=== PATIENT | male | born 1950 | race Caucasian/White ===

== ENCOUNTER 2022-03-20 11:58 | Emergency (ER) | payer MEDICARE ==
--- NOTE | 2022-03-20 20:31 | XRay Report ---
CHEST 1 VIEW 03/20/2022 8:02 PM INDICATION / CLINICAL INFORMATION: sob, palpitation. COMPARISON: None available. FINDINGS: SUPPORT DEVICES: None. HEART / MEDIASTINUM: No significant abnormality. LUNGS / PLEURA: No significant pulmonary or pleural abnormality. Small calcified granuloma in the rig ht midlung. No pneumothorax. ADDITIONAL FINDINGS: No significant additional findings. IMPRESSION: 1. No acute findings. Signer Name: Rebeka See MD Signed: 03/20/2022 8:27 PM Workstation Name: [id number]
[2022-03-20 20:42] LABS: Alanine Aminotransferase 15 units/L (7-56); BUN/Creatinine Ratio 21; Blood Urea Nitrogen 17 mg/dL (9-20); Calcium 8.7 mg/dL (8.4-10.2); Hemolysis Index 3
[2022-03-20 20:43] LABS: Basophils % (Auto) 0.7 % (0.0-1.8); Eosinophils # (Auto) 0.2 K/mm3 (0.0-0.4); Eosinophils % (Auto) 3.2 % (0.0-4.3); Hematocrit 37.9 % (35.5-45.6); Hemoglobin 13.6 gm/dl (11.8-15.2); Lymphocytes # (Auto) 1.4 K/mm3 (1.2-5.4); Lymphocytes % (Auto) 29.7 % (13.4-35.0); Mean Corpuscular HGB Conc 36 % (32-34); Mean Corpuscular Volume 92 fl (84-94); Monocytes # (Auto) 0.6 K/mm3 (0.0-0.8); Monocytes % (Auto) 13.2 % (0.0-7.3); Platelet Count 158 K/mm3 (140-440); Red Cell Distribution Width 13.8 % (13.2-15.2)
[2022-03-20 21:50] LABS: WBC,Urine < 1.0 /HPF (0.0-6.0)
--- NOTE | 2022-03-20 22:09 | Emergency Department Report ---
ED General Adult HPI - General Chief complaint: Medical Clearance Stated complaint: HEART PAPITATION Time Seen by Provider: 03/20/22 19:55 Source: patient Mode of arrival: Ambulatory Limitations: No Limitations - History of Present Illness Initial comments: 71-year-old pleasant male male presents to the emergency department with palpitations. Patient reports he has been experiencing heart palpitations for a while, described as sometimes skips beats, states he has previously seen a upholstery auto trimmer in [place] and was told "something with the valve or anxiety". Patient reports symptoms are sporadic,, sometimes he feels it in his head, affecting his sleep. States he has been using some clonazepam and aspirin but symptoms are not resolving. Denies history of hypertension, [place], heart failure, CAD. He denies shortness of breath, swelling orthopnea, no nausea vomiting abdominal pain, he denies any drug or caffeine use. -: month(s) Location: chest Radiation: non-radiation Consistency: intermittent Improves with: none Worsens with: none Associated Symptoms: headaches, other (Dizziness). denies: chest pain, diaphoresis, nausea/vomiting, shortness of breath, syncope, weakness - Related Data Allergies Allergy/AdvReac Type Severity Reaction Status Date / Time No Known Allergies Allergy Unverified 03/20/22 12:23 ED Review of Systems ROS: Stated complaint: HEART PAPITATION Other details as noted in HPI Constitutional: denies: chills Eyes: denies: eye pain ENT: as per HPI Respiratory: denies: cough, orthopnea, shortness of breath, SOB with exertion Cardiovascular: palpitations. denies: chest pain, dyspnea on exertion, orthopnea, edema, syncope, paroxysmal nocturnal dyspnea Endocrine: denies: excessive sweating, flushing, intolerance to cold, intolerance to heat Gastrointestinal: denies: abdominal pain, nausea, vomiting Neurological: denies: headache Psychiatric: denies: anxiety ED Past Medical Hx - Past Medical History Previous Medical History?: Yes Additional medical history: Heart racing, Head injury - Surgical History Past Surgical History?: Yes Additional Surgical History: Head surgery after head injury ED Physical Exam - General Limitations: No Limitations General appearance: alert, in no apparent distress - Head Head exam: Present: atraumatic, normocephalic - Eye Eye exam: Present: normal appearance, PERRL Pupils: Present: normal accommodation - ENT ENT exam: Present: normal exam, normal orophraynx - Neck Neck exam: Present: normal inspection - Respiratory Respiratory exam: Present: normal lung sounds bilaterally - Cardiovascular Cardiovascular Exam: Present: regular rate, normal rhythm, normal heart sounds. Absent: bradycardia, tachycardia - GI/Abdominal GI/Abdominal exam: Present: soft. Absent: distended, tenderness - Extremities Exam Extremities exam: Present: normal inspection, full ROM, normal capillary refill. Absent: tenderness - Back Exam Back exam: Present: normal inspection, full ROM - Neurological Exam Neurological exam: Present: alert, oriented X3, CN II-XII intact, normal gait ED Course Vital Signs 03/20/22 03/20/22 12:12 23:56 Temperature 97.8 F 98.5 F Pulse Rate 84 72 Respiratory 18 18 Rate Blood Pressure 98/76 Blood Pressure 113/61 [Left] O2 Sat by Pulse 97 97 Oximetry ED Medical Decision Making - Lab Data Result diagrams: 03/20/22 20:06 03/20/22 20:06 - EKG Data -: EKG Interpreted by Ak EKG shows normal: sinus rhythm Rate: normal - EKG Data When compared to previous EKG there are: previous EKG unavailable Interpretation: no acute changes, normal EKG - Medical Decision Making 71-year-old pleasant male male presents to the emergency department with palpitations. Patient reports he has been experiencing heart palpitations for a while, described as sometimes skips beats, states he has previously seen a upholstery auto trimmer in [place] and was told "something with the valve or anxiety". Patient reports symptoms are sporadic,, sometimes he feels it in his head, affecting his sleep. States he has been using some clonazepam and aspirin but symptoms are not resolving. Denies history of hypertension, [place], heart failure, CAD. He denies shortness of breath, swelling orthopnea, no nausea vomiting abdominal pain, he denies any drug or caffeine use. His's heart score is 1 for his age, vital signs has been stable, patient has not had any arrhythmic episodes, heart rate is remained less than 90, Symptoms has been going on for a while most likely he needs to see a upholstery auto trimmer outpatient. Critical care attestation.: If time is entered above; I have spent that time in minutes in the direct care of this critically ill patient, excluding procedure time. ED Disposition Clinical Impression: Heart palpitations Disposition: HOME / SELF CARE / HOMELESS Is pt being admited?: No Does the pt Need Aspirin: No Condition: Stable Instructions: Palpitations, [id number] Additional Instructions: It is important to follow-up with her upholstery auto trimmer I have provided the info rmation make sure to call the office on Tuesday to make an appointment. Do not hesitate to return to the emergency department if your symptoms continues or worsens including chest pain, shortness of breath, swelling or any other concerning symptoms Referrals: TACOS HARMON MD [Primary Care Provider] - 3-5 Days STALIN SYED MD [Staff Physician] - 3-5 Days
[2022-03-20 22:10] LABS: Bilirubin,Urine Negative (Negative); Blood,Urine Negative (Negative); Color,Urine Yellow (Yellow)
[2022-03-20 23:56] VITALS: BP 113/61
--- NOTE | 2022-03-21 10:38 | Electrocardiograph Report ---
[facility] Test Date: 2022-03-20 Test Time: 12:18:16 Pat Name: MARISOL PINA Department: Room: Gender: M Internal Salesperson: JAME : 1950 Requested By: ED DOC Order Number: [id number] Reading MD: Tristin Fox Measurements Intervals [place] Rate: 72 P: 38 AL: 163 QRS: 65 QRSD: 76 T: 59 QT: 384 QTc: 420 Interpretive Statements Sinus rhythm No previous ECG available for comparison Electronically Signed On 03-21-2022 10:37:38 EDT by Tristin Fox
== END 2022-03-20 23:56 | disposition home or self-care (01) ==
LOC: ED 11:58
DX: R00.2 Palpitations (principal)
CPT/HCPCS: 36415; 71045; 80053; 81001; 84484; 85025; 93005; 99284